=== PATIENT | male | born 1960 | race Caucasian/White ===

== ENCOUNTER 2018-02-28 15:45 | Emergency (ER) | payer MEDICAID ==
[~2018-02-28] VITALS: Ht 185.4 cm; Wt 90.8 kg
[~2018-02-28 15:45] MED LIST: DIPH25CA83 PO; RANI-366 PO; ZIPR20CA2 PO
[2018-02-28 17:06] VITALS: BP 103/50
== END 2018-02-28 19:44 | disposition home or self-care (01) ==
LOC: ER 15:46
DX: S06.0X0A Concussion without loss of consciousness, initial encounter (principal); E11.9 Type 2 diabetes mellitus without complications; Z88.6 Allergy status to analgesic agent; Z88.5 Allergy status to narcotic agent; Z79.899 Other long term (current) drug therapy; W01.198A Fall on same level from slipping, tripping and stumbling with subsequent striking against other object, initial encounter; Y93.89 Activity, other specified; Y92.89 Other specified places as the place of occurrence of the external cause; Y99.8 Other external cause status
CPT/HCPCS: 70450; 72125; 99284

== ENCOUNTER 2019-03-01 11:18 | Emergency (ER) | payer MEDICAID ==
[~2019-03-01] VITALS: Ht 185.4 cm; Wt 87.3 kg
[2019-03-01] MEDS ORDERED: diphenhydrAMINE 50 mg/ml inj IV ONE (12:00)
--- NOTE | 2019-03-01 13:00 | NUR ---
Dr Mendoza at bedside to eval pt, pt said he is feeling better now, tremors has decreased, vision is better, started Latuda 2 days ago, caregiver at bedside
[2019-03-01] MEDS ORDERED: normal saline 1000ml 1,000 ML IV ONE (13:15)
[2019-03-01 14:16] LABS: ALANINE AMINOTRANSFERASE 8 U/L (12-78); ALBUMIN 3.5 G/DL (3.4-5.0); ALBUMIN/GLOBULIN RATIO 1.3 (1.1-1.5); ALKALINE PHOSPHATASE 54 IU/L (46-116); ANION GAP 4 (8-16); ASPARTATE AMINO TRANSFERASE 13 U/L (10-37); BILIRUBIN,TOTAL 0.3 MG/DL (0.1-1.0); BLOOD UREA NITROGEN 16 MG/DL (7-18); CALCIUM 8.7 MG/DL (8.5-10.1); CHLORIDE 99 MMOL/L (99-107); CREATININE 1.07 MG/DL (0.60-1.10); GLUCOSE 82 MG/DL (70-104); MAGNESIUM 2.1 MG/DL (1.5-2.4); POTASSIUM 4.4 MMOL/L (3.5-5.1); SODIUM 133 MMOL/L (135-145); TOTAL CARBON DIOXIDE 29.8 MMOL/L (24-32); TOTAL PROTEIN 6.2 G/DL (6.4-8.2); eGFR 71 ML/MIN
[2019-03-01 14:34] VITALS: BP 144/52
== END 2019-03-01 14:36 | disposition home or self-care (01) ==
LOC: ER 11:19
DX: G25.89 Other specified extrapyramidal and movement disorders (principal); E11.9 Type 2 diabetes mellitus without complications; G20 Parkinson's disease; F29 Unspecified psychosis not due to a substance or known physiological condition; Z88.5 Allergy status to narcotic agent; Z88.6 Allergy status to analgesic agent; Z88.8 Allergy status to other drugs, medicaments and biological substances; Z79.899 Other long term (current) drug therapy
CPT/HCPCS: 36415; 80053; 83735; 96374; 99284; J1200; J7030

== ENCOUNTER 2019-03-08 15:49 | Emergency (ER) | payer MEDICAID ==
[~2019-03-08] VITALS: Ht 185.4 cm; Wt 82.4 kg
[2019-03-08 16:30] VITALS: BP 132/82
== END 2019-03-08 16:31 | disposition home or self-care (01) ==
LOC: ER 15:50
DX: M25.532 Pain in left wrist (principal); G20 Parkinson's disease; E11.9 Type 2 diabetes mellitus without complications; F29 Unspecified psychosis not due to a substance or known physiological condition; Z88.5 Allergy status to narcotic agent; Z88.6 Allergy status to analgesic agent; Z79.899 Other long term (current) drug therapy; W18.39XA Other fall on same level, initial encounter; Y93.89 Activity, other specified; Y92.89 Other specified places as the place of occurrence of the external cause; Y99.8 Other external cause status
CPT/HCPCS: 73110; 99284

== ENCOUNTER 2019-05-24 15:21 | Emergency (ER) | payer MEDICAID ==
[~2019-05-24] VITALS: Ht 185.4 cm; Wt 80.0 kg
[2019-05-24 16:27] LABS: BASOPHILS % (AUTO) 0.6 % (0-1); EOSINOPHILS # (AUTO) 0.4 X10'3 (0-0.9); EOSINOPHILS % (AUTO) 5.1 % (0-6); HEMATOCRIT 38.5 % (42.0-52.0); HEMOGLOBIN 13.2 g/dl (14.0-17.9); LYMPHOCYTES # (AUTO) 1.5 X10'3 (1.1-4.8); LYMPHOCYTES % (AUTO) 20.7 % (21-51); MEAN CORPUSCULAR HEMOGLOBIN 30.2 PG (27.0-31.0); MEAN CORPUSCULAR HGB CONC 34.2 g/dL (33.0-36.5); MEAN CORPUSCULAR VOLUME 88.2 FL (78-98); MEAN PLATELET VOLUME 9.6 FL (7.4-10.4); NEUTROPHILS # (AUTO) 4.4 X10'3 (1.8-7.7); NEUTROPHILS % (AUTO) 59.6 % (42-75); PLATELET COUNT 335 X10'3 (140-440); RED BLOOD COUNT 4.37 X10'6 (4.70-6.10); RED CELL DISTRIBUTION WIDTH 15.2 % (11.5-14.5); WHITE BLOOD COUNT 7.4 X10'3 (4.5-11.0)
[2019-05-24 16:40] LABS: ALBUMIN 3.2 G/DL (3.4-5.0); ALBUMIN/GLOBULIN RATIO 1.2 (1.1-1.5); ALKALINE PHOSPHATASE 58 IU/L (46-116); ANION GAP 5 (8-16); ASPARTATE AMINO TRANSFERASE 14 U/L (10-37); BILIRUBIN,TOTAL 0.2 MG/DL (0.1-1.0); BLOOD UREA NITROGEN 20 MG/DL (7-18); BUN/CREATININE RATIO 17.2 (5.4-32.0); CALCIUM 8.4 MG/DL (8.5-10.1); CHLORIDE 100 MMOL/L (99-107); CREATININE 1.16 MG/DL (0.60-1.10); ETHANOL < 0.010 GM/DL (0.0-0.010); GLUCOSE 118 MG/DL (70-104); POTASSIUM 4.2 MMOL/L (3.5-5.1); SODIUM 133 MMOL/L (135-145); TOTAL CARBON DIOXIDE 27.6 MMOL/L (24-32); TOTAL PROTEIN 5.8 G/DL (6.4-8.2); eGFR 65 ML/MIN
[2019-05-24 16:42] LABS: ALANINE AMINOTRANSFERASE < 6 U/L (12-78)
[2019-05-24 16:46] LABS: LARGE PLATELETS FEW; PLATELET ESTIMATE NORMAL
[2019-05-24] MEDS ORDERED: LORA-269 PO (17:09)
[2019-05-24 17:28] VITALS: BP 122/70
== END 2019-05-24 17:29 | disposition home or self-care (01) ==
LOC: ER 15:21
DX: R44.1 Visual hallucinations (principal); F20.9 Schizophrenia, unspecified; G20 Parkinson's disease; E11.9 Type 2 diabetes mellitus without complications; F31.9 Bipolar disorder, unspecified; Z88.6 Allergy status to analgesic agent; Z88.5 Allergy status to narcotic agent; Z79.899 Other long term (current) drug therapy
CPT/HCPCS: 36415; 70450; 80053; 80164; 80178; 80320; 85025; 99284

== ENCOUNTER 2020-10-30 16:19 | Emergency (ER) | payer MEDICAID ==
[~2020-10-30] VITALS: Ht 185.4 cm; Wt 100.0 kg
[~2020-10-30 16:19] MED LIST changes: +LORA-269 PO
[2020-10-30 19:05] LABS: BASOPHILS # (AUTO) 0.1 X10'3 (0-0.2); BASOPHILS % (AUTO) 1.1 % (0-1); EOSINOPHILS # (AUTO) 0.6 X10'3 (0-0.9); EOSINOPHILS % (AUTO) 5.6 % (0-6); HEMATOCRIT 42.1 % (42.0-52.0); HEMOGLOBIN 14.1 g/dl (14.0-17.9); LYMPHOCYTES # (AUTO) 1.6 X10'3 (1.1-4.8); LYMPHOCYTES % (AUTO) 15.5 % (21-51); MEAN CORPUSCULAR HEMOGLOBIN 29.4 PG (27.0-31.0); MEAN CORPUSCULAR HGB CONC 33.6 g/dL (33.0-36.5); MEAN CORPUSCULAR VOLUME 87.6 FL (78-98); MEAN PLATELET VOLUME 9.9 FL (7.4-10.4); MONOCYTES # (AUTO) 1.6 X10'3 (0-0.9); MONOCYTES % (AUTO) 15.1 % (2-12); NEUTROPHILS # (AUTO) 6.4 X10'3 (1.8-7.7); NEUTROPHILS % (AUTO) 62.7 % (42-75); PLATELET COUNT 556 X10'3 (140-440); RED BLOOD COUNT 4.81 X10'6 (4.70-6.10); RED CELL DISTRIBUTION WIDTH 16.9 % (11.5-14.5); WHITE BLOOD COUNT 10.3 X10'3 (4.5-11.0)
[2020-10-30 19:10] LABS: D-DIMER < 0.19 MG/L FEU (0-0.50); PARTIAL THROMBOPLASTIN TIME 36 SECONDS (22-32)
[2020-10-30 19:12] LABS: ALANINE AMINOTRANSFERASE 27 U/L (12-78); ALBUMIN 3.6 G/DL (3.4-5.0); ALBUMIN/GLOBULIN RATIO 1.1 (1.1-1.5); ALKALINE PHOSPHATASE 69 IU/L (46-116); ANION GAP 6 (8-16); ASPARTATE AMINO TRANSFERASE 19 U/L (10-37); BILIRUBIN,TOTAL 0.3 MG/DL (0.1-1.0); BLOOD UREA NITROGEN 18 MG/DL (7-18); BUN/CREATININE RATIO 15.8 (5.4-32.0); CALCIUM 8.6 MG/DL (8.5-10.1); CHLORIDE 97 MMOL/L (99-107); CREATININE 1.14 MG/DL (0.60-1.10); GLUCOSE 95 MG/DL (70-104); MAGNESIUM 2.3 MG/DL (1.5-2.4); POTASSIUM 4.2 MMOL/L (3.5-5.1); SODIUM 134 MMOL/L (135-145); TOTAL CARBON DIOXIDE 31.1 MMOL/L (24-32); eGFR 66 ML/MIN
--- NOTE | 2020-10-30 19:55 | NUR ---
Vascular at bedside.
--- NOTE | 2020-10-30 19:56 | NUR ---
Codie Gaona, sister POA: [phone]. Addendum: 10/30/20 at 1999 by LUI Codie requests notification if the patient is to be admitted, otherwise she states she will follow up with the patient's facility.
--- NOTE | 2020-10-30 20:22 | NUR ---
[facility] where patient resides: [phone]. Updated on plan of care. Patient currently is taking Eliquis. Call Peter for ride home and notify him if being admitted or going home. Addendum: 10/30/20 at 2157 by LIU Peter: [phone] Called and let him know patient ready to go and that there is an antibiotic to be filled this evening that is to be taken q 6 h.
[2020-10-30 20:42] LABS: ANISOCYTOSIS 1+; PLATELET ESTIMATE INCREASED; TOTAL CELLS COUNTED 100
[2020-10-30 20:43] LABS: LARGE PLATELETS MODERATE
[2020-10-30] MEDS ORDERED: CEPH250T PO (21:53)
[2020-10-30] MEDS ORDERED: cephalexin 250mg capsule PO ONE (21:55)
[2020-10-30 22:01] VITALS: BP 154/95
== END 2020-10-30 22:14 | disposition home or self-care (01) ==
LOC: ER 16:20
DX: I82.401 Acute embolism and thrombosis of unspecified deep veins of right lower extremity (principal); L03.115 Cellulitis of right lower limb; M25.572 Pain in left ankle and joints of left foot; E11.9 Type 2 diabetes mellitus without complications; F31.9 Bipolar disorder, unspecified; F20.9 Schizophrenia, unspecified; Z88.6 Allergy status to analgesic agent; Z88.5 Allergy status to narcotic agent; Z79.899 Other long term (current) drug therapy
CPT/HCPCS: 36415; 73610; 80053; 83605; 83735; 83880; 84145; 85007; 85025; 85379; 85610; 85730; 87040; 93970; 99285

== ENCOUNTER 2023-01-24 16:18 | Inpatient (IN) | payer MEDICAID ==
[~2023-01-24] VITALS: Ht 185.4 cm; Wt 103.2 kg
[2023-01-24 19:30] LABS: CLARITY,URINE CLEAR (Clear); COLOR,URINE YELLOW (Yellow); GLUCOSE, URINE NEGATIVE (Neg); KETONES,URINE NEGATIVE (Neg); LEUKOCYTE ESTERASE ,URINE SMALL (Neg); NITRITES, URINE NEGATIVE (Neg); OCCULT BLOOD,URINE NEGATIVE (Neg); PROTEIN,URINE NEGATIVE (Neg)
[2023-01-24 19:31] LABS: BASOPHILS % (AUTO) 0.3 % (0-1); EOSINOPHILS # (AUTO) 1.2 X10'3 (0-0.9); EOSINOPHILS % (AUTO) 9.7 % (0-6); HEMATOCRIT 52.1 % (42.0-52.0); HEMOGLOBIN 17.2 g/dl (14.0-17.9); LYMPHOCYTES # (AUTO) 1.3 X10'3 (1.1-4.8); LYMPHOCYTES % (AUTO) 10.8 % (21-51); MEAN CORPUSCULAR HEMOGLOBIN 31.2 PG (27.0-31.0); MEAN CORPUSCULAR VOLUME 94.6 FL (78-98); MEAN PLATELET VOLUME 9.6 FL (7.4-10.4); MONOCYTES # (AUTO) 1.5 X10'3 (0-0.9); NEUTROPHILS # (AUTO) 8.3 X10'3 (1.8-7.7); NEUTROPHILS % (AUTO) 67.2 % (42-75); PLATELET COUNT 418 X10'3 (140-440); RED BLOOD COUNT 5.51 X10'6 (4.70-6.10); WHITE BLOOD COUNT 12.3 X10'3 (4.5-11.0)
[2023-01-24 19:39] LABS: UA COLLECTION TYPE CLN CATCH MIDSTREAM
[2023-01-24 19:40] LABS: BACTERIA,URINE NONE SEEN /HPF (Neg); RBC,URINE 0-2 /HPF (0-2); SQUAMOUS EPITHELIAL CELL,UR FEW /LPF (FEW)
[2023-01-24 19:43] LABS: ALANINE AMINOTRANSFERASE 45 U/L (12-78); ALBUMIN 3.7 G/DL (3.4-5.0); ALBUMIN/GLOBULIN RATIO 0.9 (1.1-1.5); ALKALINE PHOSPHATASE 104 IU/L (46-116); ANION GAP 11 (8-16); ASPARTATE AMINO TRANSFERASE 36 U/L (10-37); BILIRUBIN,TOTAL 0.6 MG/DL (0.1-1.0); BLOOD UREA NITROGEN 30 MG/DL (7-18); BUN/CREATININE RATIO 13.5 (10.0-20.0); CALCIUM 9.8 MG/DL (8.5-10.1); CHLORIDE 100 MMOL/L (99-107); CREATININE 2.22 MG/DL (0.60-1.10); GLUCOSE 102 MG/DL (70-104); POTASSIUM 5.4 MMOL/L (3.5-5.1); SODIUM 137 MMOL/L (135-145); TOTAL CARBON DIOXIDE 26.1 MMOL/L (24-32); TOTAL PROTEIN 7.6 G/DL (6.4-8.2); eGFR 30 ML/MIN
[2023-01-24 19:55] LABS: TOTAL CELLS COUNTED 100
[2023-01-24 19:56] LABS: BURR CELLS 1+; GIANT PLATELET FEW; LARGE PLATELETS MODERATE; PLATELET ESTIMATE NORMAL
[2023-01-24 19:57] LABS: ELLIPTOCYTES FEW
[2023-01-24] MEDS ORDERED: normal saline 1000ML IV soln IVB ONE (20:05)
[2023-01-24] MEDS ORDERED: ondansetron/PF 4mg/2ml inj IV PRN (22:10)
[2023-01-24] MEDS ORDERED: acetaminophen 325mg tablet PO PRN (22:10)
[2023-01-24] MEDS ORDERED: potassium Cl 40MEQ/1/2NS 520ml 520 ML IV PRN (22:10)
[2023-01-24] MEDS ORDERED: potassium Cl 20 mEq SR tablet PO PRN ×2 (22:10)
[2023-01-24] MEDS ORDERED: magnesium 2GM in 50ml NS 50 ML IV PRN (22:10)
[2023-01-24] MEDS ORDERED: magnesium 4gm in 100ml NS 100 ML IV PRN (22:10)
[2023-01-24] MEDS ORDERED: magnesium Cl slow-release 64mg tablet PO PRN (22:10)
[2023-01-24] MEDS ORDERED: CARV6.253 PO (23:15)
[2023-01-24] MEDS ORDERED: POLYETHYLENE GLYCOL PO (23:32)
[2023-01-24] MEDS ORDERED: VALP250C44 PO (23:32)
[2023-01-24] MEDS ORDERED: LURA120T PO (23:32)
[2023-01-24] MEDS ORDERED: ATOR80TA PO (23:32)
[2023-01-24] MEDS ORDERED: BENZ1TAB78 PO (23:32)
[2023-01-24] MEDS ORDERED: MELA10TA2 PO (23:32)
[2023-01-24] MEDS ORDERED: NITR0.4T51 SL (23:32)
[2023-01-24] MEDS ORDERED: LITH150C8 PO (23:32)
[2023-01-24] MEDS ORDERED: DIVA-74 PO (23:32)
[2023-01-24] MEDS ORDERED: APIX5TAB3 PO (23:32)
[2023-01-24] MEDS ORDERED: TRAZ-256 PO (23:32)
[2023-01-24] MEDS ORDERED: FLO0.4C PO (23:32)
[2023-01-24] MEDS ORDERED: QUET400T PO (23:32)
[2023-01-24] MEDS ORDERED: AMA100C PO (23:32)
[2023-01-24] MEDS ORDERED: DOCU250C17 PO (23:32)
[2023-01-24] MEDS ORDERED: LITH300C PO (23:32)
[2023-01-24] MEDS ORDERED: DIVA-76 PO (23:32)
[2023-01-24] MEDS ORDERED: SACU1TAB PO (23:32)
[2023-01-24] MEDS ORDERED: ALBU6.7H14 INH (23:32)
--- NOTE | 2023-01-24 23:34 | NUR ---
report called to floor nurse. tx to room 4010 by tech
--- NOTE | 2023-01-24 23:50 | NUR ---
received report from Hardy RUEDA in ER and had chance to ask questions. Pt arrived to unit, skin assessment performed with Cassie JESSICA, VS taken, MRSA swab collected. Pt is resting in bed, watching television following assessment, no c/o issue at this time. will continue to monitor
[2023-01-25] VITALS (9 sets, daily range): BP systolic 123–170; BP diastolic 69–108; PULSE 61–93; RESP 14–20; TEMP 96.8–98.7; O2SAT 93–98
[2023-01-25] MEDS: CefTRIAXone/D5W-Rocephin 1gm 50 ML IV SCH ×2 (01:16→20:55)
[2023-01-25] MEDS: normal saline 1000ml 1,000 ML IV SCH ×3 (01:21→20:48)
[2023-01-25] MEDS ORDERED: MAGN400O6 PO (03:00)
--- NOTE | 2023-01-25 03:03 | NUR ---
notified Dr. Yee through page that the med rec was reviewed by nursing and ready for orders.
[2023-01-25] MEDS ORDERED: nitroGLYCERIN 0.4mg SUBLingual tab SL PRN (04:15)
[2023-01-25] MEDS ORDERED: albuterol 2.5 MG/3 ML nebule NEB PRN (04:15)
--- NOTE | 2023-01-25 06:28 | NUR ---
reported to day RN. noted pt up with PT to [facility] again. reminded to use alarms as patient is impulsive. home meds ready for this am.
[2023-01-25 06:54] LABS: ALANINE AMINOTRANSFERASE 40 U/L (12-78); ALBUMIN 3.3 G/DL (3.4-5.0); ALBUMIN/GLOBULIN RATIO 0.9 (1.1-1.5); ALKALINE PHOSPHATASE 105 IU/L (46-116); ANION GAP 8 (8-16); ASPARTATE AMINO TRANSFERASE 36 U/L (10-37); BILIRUBIN,TOTAL 0.4 MG/DL (0.1-1.0); BLOOD UREA NITROGEN 27 MG/DL (7-18); BUN/CREATININE RATIO 13.8 (10.0-20.0); CALCIUM 8.8 MG/DL (8.5-10.1); CHLORIDE 100 MMOL/L (99-107); CREATININE 1.96 MG/DL (0.60-1.10); GLUCOSE 87 MG/DL (70-104); MAGNESIUM 2.1 MG/DL (1.5-2.4); SODIUM 135 MMOL/L (135-145); TOTAL CARBON DIOXIDE 27.1 MMOL/L (24-32); TOTAL PROTEIN 6.9 G/DL (6.4-8.2); eGFR 35 ML/MIN
[2023-01-25 06:58] LABS: MONOCYTES # (AUTO) 1.8 X10'3 (0-0.9)
[2023-01-25 06:59] LABS: BASOPHILS % (AUTO) 0.2 % (0-1); EOSINOPHILS # (AUTO) 0.9 X10'3 (0-0.9); EOSINOPHILS % (AUTO) 7.7 % (0-6); HEMATOCRIT 47.9 % (42.0-52.0); HEMOGLOBIN 15.8 g/dl (14.0-17.9); LYMPHOCYTES % (AUTO) 8.5 % (21-51); MEAN CORPUSCULAR HGB CONC 33.1 g/dL (33.0-36.5); MEAN CORPUSCULAR VOLUME 93.9 FL (78-98); MEAN PLATELET VOLUME 9.5 FL (7.4-10.4); MONOCYTES % (AUTO) 14.9 % (2-12); NEUTROPHILS # (AUTO) 8.3 X10'3 (1.8-7.7); NEUTROPHILS % (AUTO) 68.7 % (42-75); PLATELET COUNT 376 X10'3 (140-440); RED CELL DISTRIBUTION WIDTH 15.7 % (11.5-14.5); WHITE BLOOD COUNT 12.1 X10'3 (4.5-11.0)
[2023-01-25] MEDS: polyethylene glycol 3350 17gm powd pack PO SCH ×2 (07:26→19:36)
[2023-01-25] MEDS: amantadine 100 MG capsule PO SCH ×3 (07:28→20:47)
[2023-01-25] MEDS: apixaban 5mg tablet PO SCH ×2 (07:28→20:47)
[2023-01-25] MEDS: sacubitril/valsartan 24mg-26mg tablet PO SCH ×2 (07:29→20:43)
[2023-01-25] MEDS: valproic acid 250mg capsule PO SCH ×2 (07:29→20:48)
[2023-01-25] MEDS: lithium carbonate 150mg capsule PO SCH (07:29)
[2023-01-25] MEDS: lurasidone 60mg tablet PO SCH (07:29)
[2023-01-25] MEDS: divalproex 250mg tablet, delayed-release PO SCH (07:30)
[2023-01-25] MEDS: docusate sod 250mg capsule PO SCH ×2 (07:30→19:35)
[2023-01-25] MEDS: benztropine 1mg tablet PO SCH ×3 (07:30→20:47)
[2023-01-25] MEDS: carvedilol 6.25mg tablet PO SCH ×2 (07:30→20:46)
[2023-01-25] MEDS: tamsulosin 0.4mg capsule PO SCH (07:30)
[2023-01-25] MEDS: K and/or MAG REPLACEMENT MC SCH ×2 (07:36→20:00)
[2023-01-25 07:58] LABS: ACANTHOCYTES FEW; BURR CELLS 1+; ELLIPTOCYTES FEW; GIANT PLATELET FEW; LARGE PLATELETS MODERATE; PLATELET ESTIMATE NORMAL
[2023-01-25] MEDS ORDERED: magnesium hydroxide 30ml (MOM) UD suspension PO SCH (08:00)
[2023-01-25] MEDS ORDERED: CefTRIAXone/D5W-Rocephin 1gm 50 ML IV SCH (08:00)
[2023-01-25 08:13] LABS: HEMOGLOBIN A1C 5.2 % (4.5-6.2)
[2023-01-25] MEDS ORDERED: magnesium hydroxide 30ml (MOM) UD suspension PO PRN (18:25)
[2023-01-25] MEDS ORDERED: traZODone 50mg tablet PO SCH (21:00)
[2023-01-25] MEDS ORDERED: lithium carbonate 150mg capsule PO SCH (21:00)
[2023-01-25] MEDS ORDERED: Melatonin 3mg tablet PO SCH (21:00)
[2023-01-25] MEDS ORDERED: quetiapine 100mg tablet PO SCH (21:00)
[2023-01-25] MEDS ORDERED: divalproex sodium 500mg tablet.DR PO SCH (21:00)
[2023-01-25] MEDS ORDERED: atorvastatin 20mg tablet PO SCH (21:00)
--- NOTE | 2023-01-26 00:02 | NUR ---
Pt tremulous and restless while attempting orthostatic VS, could not keep arms still Addendum: 01/26/23 at 0004 by Krishan Ingram LVN Amended: Links added.
[2023-01-26] MEDS: normal saline 1000ml 1,000 ML IV SCH (04:10)
--- NOTE | 2023-01-26 05:50 | NUR ---
pt resting through the night. still having multiple bms this shift. anticipate possibile discharge today.
[2023-01-26 06:00] VITALS: BP 106/68; PULSE 62; RESP 17; TEMP 98; O2SAT 96
--- NOTE | 2023-01-26 06:00 | NUR ---
Patient in room ORTHO 4010. I have received report from Krishan RUEDA/Lety JESSICA and had the opportunity to ask questions and assume patient care.
[2023-01-26 06:47] LABS: BASOPHILS # (AUTO) 0.1 X10'3 (0-0.2); BASOPHILS % (AUTO) 0.7 % (0-1); EOSINOPHILS # (AUTO) 0.9 X10'3 (0-0.9); EOSINOPHILS % (AUTO) 9.4 % (0-6); HEMATOCRIT 47.6 % (42.0-52.0); HEMOGLOBIN 15.8 g/dl (14.0-17.9); LYMPHOCYTES # (AUTO) 1.5 X10'3 (1.1-4.8); LYMPHOCYTES % (AUTO) 16.3 % (21-51); MEAN CORPUSCULAR HEMOGLOBIN 31.3 PG (27.0-31.0); MEAN CORPUSCULAR HGB CONC 33.2 g/dL (33.0-36.5); MEAN CORPUSCULAR VOLUME 94.2 FL (78-98); MEAN PLATELET VOLUME 9.3 FL (7.4-10.4); MONOCYTES # (AUTO) 1.2 X10'3 (0-0.9); MONOCYTES % (AUTO) 12.6 % (2-12); NEUTROPHILS # (AUTO) 5.7 X10'3 (1.8-7.7); PLATELET COUNT 336 X10'3 (140-440); RED BLOOD COUNT 5.05 X10'6 (4.70-6.10); RED CELL DISTRIBUTION WIDTH 15.3 % (11.5-14.5); WHITE BLOOD COUNT 9.4 X10'3 (4.5-11.0)
[2023-01-26 07:09] LABS: ALANINE AMINOTRANSFERASE 31 U/L (12-78); ALBUMIN/GLOBULIN RATIO 0.9 (1.1-1.5); ALKALINE PHOSPHATASE 99 IU/L (46-116); ANION GAP 8 (8-16); ASPARTATE AMINO TRANSFERASE 32 U/L (10-37); BILIRUBIN,TOTAL 0.5 MG/DL (0.1-1.0); BLOOD UREA NITROGEN 17 MG/DL (7-18); BUN/CREATININE RATIO 11.6 (10.0-20.0); CALCIUM 8.9 MG/DL (8.5-10.1); CHLORIDE 102 MMOL/L (99-107); CREATININE 1.46 MG/DL (0.60-1.10); GLUCOSE 99 MG/DL (70-104); MAGNESIUM 2.2 MG/DL (1.5-2.4); POTASSIUM 3.9 MMOL/L (3.5-5.1); SODIUM 135 MMOL/L (135-145); TOTAL CARBON DIOXIDE 24.8 MMOL/L (24-32); TOTAL PROTEIN 6.4 G/DL (6.4-8.2); eGFR 49 ML/MIN
[2023-01-26] MEDS: CefTRIAXone/D5W-Rocephin 1gm 50 ML IV SCH (07:43)
[2023-01-26 07:49] LABS: TOTAL CELLS COUNTED 100
[2023-01-26 07:50] LABS: BURR CELLS 1+; ELLIPTOCYTES FEW; GIANT PLATELET FEW; LARGE PLATELETS MODERATE; PLATELET ESTIMATE NORMAL
[2023-01-26 08:00] VITALS: BP_SYST 118; BP_SYST 125; BP_SYST 129; BP_DIAS 73; BP_DIAS 74; BP_DIAS 91; PULSE 63; PULSE 70; PULSE 76; RESP 17; O2SAT 96
[2023-01-26] MEDS: docusate sod 250mg capsule PO SCH (08:00)
[2023-01-26] MEDS: polyethylene glycol 3350 17gm powd pack PO SCH (08:00)
[2023-01-26] MEDS: K and/or MAG REPLACEMENT MC SCH (08:00)
[2023-01-26] MEDS: apixaban 5mg tablet PO SCH (09:00)
[2023-01-26] MEDS: amantadine 100 MG capsule PO SCH ×2 (09:00→13:03)
[2023-01-26] MEDS: benztropine 1mg tablet PO SCH ×2 (09:00→13:03)
[2023-01-26] MEDS: lithium carbonate 150mg capsule PO SCH (09:01)
[2023-01-26] MEDS: carvedilol 6.25mg tablet PO SCH (09:01)
[2023-01-26] MEDS: tamsulosin 0.4mg capsule PO SCH (09:01)
[2023-01-26] MEDS: divalproex 250mg tablet, delayed-release PO SCH (09:01)
[2023-01-26] MEDS: valproic acid 250mg capsule PO SCH (09:08)
[2023-01-26] MEDS: sacubitril/valsartan 24mg-26mg tablet PO SCH (09:08)
[2023-01-26] MEDS: lurasidone 60mg tablet PO SCH (09:08)
[2023-01-26 10:00] VITALS: BP 118/73; PULSE 63; RESP 13; TEMP 97.5; O2SAT 100
--- NOTE | 2023-01-26 13:27 | NUR ---
DISTRIBUTION OPERATIONS SUPERVISOR documentation: I have reviewed and agree with all interventions, assessments performed and documented by Brooke Beatty LVN.
--- NOTE | 2023-01-26 16:25 | NUR ---
Patient discharged home today. All discharge instructions were explained and all questions were answered. IV removed by RN. Patient alert and appropriate for discharge. Patient gathered all belongings, pt wheeled downstairs and helped into private vehicle.
== END 2023-01-26 16:30 | disposition home or self-care (01) | DRG 463 ==
LOC: ER 16:19 → ORTHO 4S 22:13
PROVIDERS: ADMIT Internal Medicine; ATTEND Internal Medicine
DX: N39.0 Urinary tract infection, site not specified (principal); N17.9 Acute kidney failure, unspecified; E11.22 Type 2 diabetes mellitus with diabetic chronic kidney disease; F29 Unspecified psychosis not due to a substance or known physiological condition; G20 Parkinson's disease; D75.1 Secondary polycythemia; E78.5 Hyperlipidemia, unspecified; G47.00 Insomnia, unspecified; E87.5 Hyperkalemia; F31.9 Bipolar disorder, unspecified; N40.0 Benign prostatic hyperplasia without lower urinary tract symptoms; R03.0 Elevated blood-pressure reading, without diagnosis of hypertension; W18.2XXA Fall in (into) shower or empty bathtub, initial encounter; N18.9 Chronic kidney disease, unspecified; M25.529 Pain in unspecified elbow; R26.81 Unsteadiness on feet; F20.9 Schizophrenia, unspecified; Y93.E1 Activity, personal bathing and showering; Z88.6 Allergy status to analgesic agent; Y92.89 Other specified places as the place of occurrence of the external cause; Y99.8 Other external cause status; Z79.899 Other long term (current) drug therapy
CPT/HCPCS: 36415; 70450; 71045; 80053; 81001; 83036; 83735; 85007; 85008; 85025; 87081; 87088; 94760; 97116; 97161; 97530; 99285; G0378; J0696; J7030

== ENCOUNTER 2023-11-21 20:16 | Emergency (ER) | payer MEDICAID ==
[~2023-11-21] VITALS: Ht 185.4 cm; Wt 75.3 kg
[~2023-11-21 20:16] MED LIST changes: +ALBU6.7H14 INH; +AMA100C PO; +APIX5TAB3 PO; +ATOR80TA PO; +BENZ1TAB78 PO; +CARV6.253 PO; -DIPH25CA83 PO; +DIVA-74 PO; +DIVA-76 PO; +DOCU250C17 PO; +FLO0.4C PO; +LITH150C8 PO; +LITH300C PO; -LORA-269 PO; +LURA120T PO; +MAGN400O6 PO; +MELA10TA2 PO; +NITR0.4T51 SL; +POLYETHYLENE GLYCOL PO; +QUET400T PO; -RANI-366 PO; +SACU1TAB PO; +TRAZ-256 PO; +VALP250C44 PO; -ZIPR20CA2 PO
[2023-11-21 20:35] VITALS: TEMP 98.5
[2023-11-21 20:56] LABS: BASOPHILS # (AUTO) 0.1 X10'3 (0-0.2); EOSINOPHILS # (AUTO) 0.8 X10'3 (0-0.9); LYMPHOCYTES # (AUTO) 1.7 X10'3 (1.1-4.8); MONOCYTES # (AUTO) 1.1 X10'3 (0-0.9); NEUTROPHILS # (AUTO) 8.4 X10'3 (1.8-7.7)
[2023-11-21 20:58] LABS: BASOPHILS % (AUTO) 0.7 % (0-1); EOSINOPHILS % (AUTO) 6.9 % (0-6); LYMPHOCYTES % (AUTO) 13.8 % (21-51); MEAN CORPUSCULAR HEMOGLOBIN 23.8 PG (27.0-31.0); MEAN CORPUSCULAR HGB CONC 32.8 g/dL (33.0-36.5); MEAN CORPUSCULAR VOLUME 72.8 FL (78-98); MEAN PLATELET VOLUME 9.5 FL (7.4-10.4); NEUTROPHILS % (AUTO) 69.6 % (42-75); PLATELET COUNT 280 X10'3 (140-440); RED BLOOD COUNT 7.91 X10'6 (4.70-6.10)
[2023-11-21 21:23] LABS: ALANINE AMINOTRANSFERASE 15 U/L (12-78); ALBUMIN 3.3 G/DL (3.4-5.0); ALBUMIN/GLOBULIN RATIO 0.9 (1.1-1.5); ALKALINE PHOSPHATASE 101 IU/L (46-116); ANION GAP 8 (8-16); ASPARTATE AMINO TRANSFERASE 13 U/L (10-37); BILIRUBIN,TOTAL 0.6 MG/DL (0.1-1.0); BLOOD UREA NITROGEN 18 MG/DL (7-18); BUN/CREATININE RATIO 15.5 (10.0-20.0); CALCIUM 9.2 MG/DL (8.5-10.1); CHLORIDE 96 MMOL/L (99-107); CREATININE 1.16 MG/DL (0.60-1.10); GLUCOSE 83 MG/DL (70-104); LIPASE 28 U/L (16-77); POTASSIUM 4.5 MMOL/L (3.5-5.1); SODIUM 131 MMOL/L (135-145); TOTAL CARBON DIOXIDE 26.7 MMOL/L (24-32); eCRCL 71 ML/MIN; eGFR 64 ML/MIN
[2023-11-21 21:25] LABS: HEMATOCRIT 57.6 % (42.0-52.0); HEMOGLOBIN 18.9 g/dl (14.0-17.9)
[2023-11-21 21:26] LABS: ANISOCYTOSIS 2+; BURR CELLS FEW; ELLIPTOCYTES FEW; LARGE PLATELETS MODERATE; MICROCYTOSIS 1+; PLATELET ESTIMATE NORMAL
[2023-11-22] MEDS ORDERED: iohexol 300mg/ml 100ml inj. ONE (03:28)
[2023-11-22] MEDS ORDERED: MAGN296S68 PO (04:02)
[2023-11-22 04:50] VITALS: BP 168/107; PULSE 76; RESP 16; O2SAT 98
== END 2023-11-22 04:52 | disposition home or self-care (01) ==
LOC: ER 20:17
DX: K59.00 Constipation, unspecified (principal); R10.9 Unspecified abdominal pain; R11.0 Nausea; E11.9 Type 2 diabetes mellitus without complications; Z88.5 Allergy status to narcotic agent; Z88.6 Allergy status to analgesic agent
CPT/HCPCS: 36415; 74177; 80053; 83690; 85008; 85025; 99285; J3490; Q9967